=== PATIENT | female | born 1995 | race Caucasian/White ===

== ENCOUNTER 2018-11-08 19:57 | Emergency (ER) | payer BC, OTHER ==
[2018-11-08 23:51] LABS: HBSAB Concentration 0.05 mIU/mL; Hep B Surf AB Non-Reactive (NonReactive); Hep C IgG Ab Non-Reactive (NonReactive); Hep C Index 0.09 S/CO (0-0.79)
[2018-11-09 00:24] LABS: HIV (1/2) Antibody/Antigen Non-Reactive (NonReactive); HIV 1/2 INDEX 0.08 S/CO (<1.00)
== END 2018-11-08 21:18 | disposition home or self-care (01) ==
LOC: ERS 19:57 → EEVIPCON 19:57 → ERS 21:18
DX: S61.232A Puncture wound without foreign body of right middle finger without damage to nail, initial encounter (principal); Z77.21 Contact with and (suspected) exposure to potentially hazardous body fluids; W46.1XXA Contact with contaminated hypodermic needle, initial encounter
CPT/HCPCS: 36415; 86706; 86803; 87389; 99283

== ENCOUNTER 2019-12-02 07:52 | Day surgery (SDC) | payer BC, SELFPAY ==
[2019-12-02] MEDS ORDERED: Ondansetron PF 4 MG/2 ML Vial ONE ×3 (08:09→12:51)
[2019-12-02] MEDS ORDERED: Fentanyl 100 MCG/2 ML VIAL ONE ×4 (08:19→13:14)
[2019-12-02 08:28] LABS: #Basophils 0.1 thou/uL (0.0-0.2); #Eosinphils 0.1 thou/uL (0.0-0.7); #Lymphocytes 1.9 thou/uL (1.20-3.40); #Neutrophils 8.4 thou/uL (1.40-6.50); %Basophils 0.8 % (0.0-1.0); %Eosinophils 0.8 % (0.0-10.0); %Lymphocytes 16.5 % (21.0-51.0); %Monocytes 8.3 % (0.0-10.0); %Neutrophils 73.6 % (42.0-75.0); Hemoglobin 15.9 g/dL (12.0-16.0); Mean Corpuscular HGB CONC 34.7 g/dL (32.0-36.0); Mean Corpuscular Hemoglobin 32.4 pg (27.0-31.0); Mean Corpuscular Volume 93.6 fL (78.0-98.0); Mean Platelet Volume 8.3 fL (7.4-10.4); Platelet Count 252 thou/uL (130-400); Red Blood Cell (RBC) Count 4.89 mill/uL (4.20-5.40); White Blood Cell (WBC) Count 11.4 thou/uL (4.8-10.8)
[2019-12-02 09:04] LABS: BHCG - Serum Negative (NEGATIVE); Pregs Control Background? CLEAR/WHITE (CLR/WHITE); Pregs Control Bar Appear? YES (CONTROL BAR)
[2019-12-02 09:07] LABS: Albumin 4.2 g/dL (3.5-5.0)
[2019-12-02 09:08] LABS: Chloride 104 mmol/L (98-107); Potassium 3.6 mmol/L (3.5-5.1); Sodium 135 mmol/L (136-145)
[2019-12-02 09:09] LABS: Calcium 8.8 mg/dL (7.8-10.44); Globulin 2.8 g/dL (2.4-3.5); Glucose 132 mg/dL (70-105)
[2019-12-02 09:11] LABS: Anion Gap 10 mmol/L (10-20); Bilirubin, Total 0.4 mg/dL (0.2-1.2); Carbon Dioxide 25 mmol/L (22-29)
[2019-12-02 09:12] LABS: Alkaline Phosphatase 58 U/L (40-110)
[2019-12-02 09:13] LABS: BUN (Urea Nitrogen) 7 mg/dL (7.0-18.7); Calc. Creatinine Clearance 0 mL/min (70-130); Estimated GFR-MDRD 90
[2019-12-02 09:14] LABS: AST (SGOT) 49 U/L (5-34)
[2019-12-02 09:15] LABS: ALT (SGPT) 54 U/L (8-55); Lipase 16 U/L (8-78)
[2019-12-02] MEDS ORDERED: Glycopyrrolate 0.2 MG/ML 5 ML SYRINGE ONE (09:24)
[2019-12-02] MEDS ORDERED: Dexamethasone 20 MG/5 ML VIAL ONE (09:24)
[2019-12-02] MEDS ORDERED: PROPOFOL 200 MG/20 ML VIAL ONE (09:24)
[2019-12-02] MEDS ORDERED: Succinylcholine Chloride 20 MG/ML 10 ml SYRINGE FS ONE (09:24)
[2019-12-02] MEDS ORDERED: Lidocaine 1% PF 5 ML VIAL ONE (09:24)
[2019-12-02] MEDS ORDERED: Ketorolac Tromethamine 30 MG/ML VIAL ONE (09:24)
[2019-12-02] MEDS ORDERED: Fentanyl 100 MCG/2 ML VIAL SLOW IVP ONE ×2 (10:10→12:18)
--- NOTE | 2019-12-02 11:03 | CT ---
CT ABDOMEN AND PELVIS WITH IV CONTRAST: Date: 12/02/2019 PROVIDED CLINICAL HISTORY: Right lower quadrant pain. FINDINGS: The visualized lung bases are free of significant opacity. The liver, spleen, pancreas, kidneys, and adrenal glands demonstrate an unremarkable CT appearance. The cecum is on a mobile pedicle, with the cecum located within the left mid abdomen. The cecum measu res approximately 7 cm, containing predominantly gas. The remainder of the colon contains stool. Th ere is a focal area of narrowing of the right colon as it traverses anterior to the right psoas muscl e. The appendix is not distinctly identified, without evidence for appendicitis within the left uppe r quadrant. There is nondistended, fluid-filled bowel present diffusely suggesting enteritis. Multiple prominent by number and borderline enlarged lymph nodes are seen within the central small darrel wel mesentery. There is no inflammatory fat stranding, free fluid, or free air apparent. The regional major vascular structures appear unremarkable. The osseous structures demonstrate no concerning lytic or blastic lesions. IMPRESSION: 1. Fluid-filled nondilated small bowel suggesting enteritis. 2. Enlarged and prominent by number mesenteric lymph nodes suggesting mesenteric adenitis. 3. Nonspecific cecal distention proximal to an area of focal narrowing, with evidence for a mobile c ecum. Consider follow up radiographs to evaluate for contrast passage distal to this area of narrowi ng to exclude early obstructive change. POS: DERICK
[2019-12-02 11:15] LABS: Bilirubin Negative (Negative); Blood, Urine Negative (Negative); Clarity Clear (Clear); Glucose, Urine (Dipstick) Normal (Negative); Ketone, Urine Negative (Negative); Leukocyte Negative Leu/uL (Negative); Nitrite Negative (Negative); Protein, Urine (Dipstick) 10 mg/dL (Neg-Trace); Specific Gravity, Urine Greater than 1.060 (1.002-1.036); Urobilinogen Normal mg/dL (Less than 2); pH, Urine 5.5 (5.0-9.0)
[2019-12-02] MEDS ORDERED: Iopamidol-370 76% 500 ML 1 ML ONE (11:50)
--- NOTE | 2019-12-02 11:53 | ULT ---
US Pelvic Transvag W Doppler History: Right lower quadrant pain. Evaluate for torsion. Comparison: CT same day Findings: Real-time grayscale color and spectral analysis of the pelvis was performed transabdominal and transvaginal approach. No significant free fluid in the pelvis. Distended small bowel loops in the abdomen. Uterus is normal. Endometrium is normal. Adequate vascular flow to both ovaries with multiple follicles. Impression: 1. Normal appearance of the ovaries without torsion. 2. Normal uterus. 3. Mildly distended loops of small bowel in the pelvis. Dr. Brown notified at 11:47 am.
[2019-12-02] MEDS ORDERED: Lidocaine 1% w/Epinephrine 1:100K 20 ML VIAL ONE (12:47)
[2019-12-02] MEDS ORDERED: Bupivacaine 0.25% HCL 30 ML VIAL ONE (12:47)
[2019-12-02] MEDS ORDERED: Zolpidem Tartrate 5 MG TAB PO PRN (14:42)
[2019-12-02] MEDS ORDERED: diphenhydrAMINE 50 MG/ML VIAL IM PRN (14:42)
[2019-12-02] MEDS ORDERED: fentaNYL Citrate/PF 2,000 MCG in Sodium Chloride 0.9% 60 ML IV PRN (14:42)
[2019-12-02] MEDS ORDERED: Promethazine HCl 25 MG/ML VIAL IM PRN ×3 (14:42→15:50)
[2019-12-02] MEDS ORDERED: Naloxone HCl 0.4 mg/ml Vial IV PRN (14:42)
[2019-12-02] MEDS ORDERED: diphenhydrAMINE 25 MG CAP PO PRN (14:42)
[2019-12-02] MEDS ORDERED: Ondansetron PF 4 MG/2 ML Vial IVP PRN ×2 (14:42→15:50)
[2019-12-02] MEDS ORDERED: diphenhydrAMINE 50 MG/ML VIAL IVP PRN (14:42)
[2019-12-02] MEDS ORDERED: Promethazine HCl 25 MG/ML VIAL SLOW IVP PRN (14:43)
[2019-12-02] MEDS ORDERED: Ondansetron HCl/PF 4 MG/2 ML Vial IVP PRN (14:43)
[2019-12-02] MEDS ORDERED: Meperidine HCl/PF 25 MG/ML VIAL ONE (14:43)
[2019-12-02] MEDS ORDERED: Communication Order-Pharmacy FS SCH (14:45)
--- NOTE | 2019-12-02 15:25 | HP ---
CHIEF COMPLAINT: Abdominal pain. HISTORY OF PRESENT ILLNESS: This is a 23-year-old female, who presents with severe acute onset abdominal pain this morning. It is sharp, described as 10/10. She cannot lie down, it hurts so bad. It comes and cramps, associated with nausea, no vomiting. She has had diarrhea for a week. No sick contacts. No fever or chills. No history of chronic anorexia. No history of chronic abdominal pain or chronic diarrhea. She has no known history of inflammatory bowel disease or Crohn's. She denies dysuria, fever, or chills. PAST MEDICAL HISTORY: She denies. PAST SURGICAL HISTORY: Breast augmentation. MEDICATIONS: None. ALLERGIES: MORPHINE CAUSES NAUSEA. SOCIAL HISTORY: No smoking, alcohol, or other drugs. REVIEW OF SYSTEMS: 10-system review of systems is otherwise negative unless described above. PHYSICAL EXAMINATION: HEENT: Sclerae are anicteric. Oropharynx clear. NECK: No lymphadenopathy. CHEST: Clear. HEART: Regular rate. ABDOMEN: Soft, distended, tender in the right lower quadrant with localized guarding. No rebound. EXTREMITIES: No ischemia or edema to extremities. LABORATORY DATA: White blood cell count is mildly elevated. Her hemoglobin is normal. Her creatinine is normal. CT scan shows dilated small intestine, questionable enteritis but also question of internal hernia. ASSESSMENT: Severe abdominal pain in the setting of a possible internal hernia. Differential could also include mesenteric adenitis or infectious or chronically-inflamed enteritis. However, I think she does need diagnostic laparoscopy to rule out ischemia from an internal hernia. Risks, benefits, and alternatives discussed, she gives consent, we will do this today. Job ID: [id number]
[2019-12-02] MEDS ORDERED: Dextrose 5% in Water 1,000 ML IV PRN (15:50)
[2019-12-02] MEDS ORDERED: hydrALAZINE 20 MG/ML VIAL SLOW IVP PRN (15:50)
[2019-12-02] MEDS ORDERED: Dextrose 50% Abboject 50 ML SYRINGE SLOW IVP PRN (15:50)
[2019-12-02] MEDS ORDERED: Ketorolac Tromethamine 30 MG/ML VIAL IVP PRN (15:50)
[2019-12-02 16:54] VITALS: BMI 26.6
[2019-12-02] MEDS: D5 1/2 NS w/20 mEq KCL 1,000 ML IV SCH ×2 (17:56→23:51)
--- NOTE | 2019-12-02 19:58 | OP ---
DATE OF PROCEDURE: 12/02/2019 PREOPERATIVE DIAGNOSIS: Abdominal pain, rule out internal hernia. POSTOPERATIVE DIAGNOSIS: Mesenteric adenitis. PROCEDURE PERFORMED: Diagnostic laparoscopy. ANESTHESIA: General. ESTIMATED BLOOD LOSS: Minimal. COMPLICATIONS: None. FINDINGS: There was mesenteric adenitis in the diffuse small bowel mesentery. There was no evidence of obstruction, ischemia, or internal hernia. There was one area of intussusception in the more proximal small bowel, but this appeared to be transient and spontaneously reduced under direct vision. There was a noninflamed Meckel's. DESCRIPTION OF PROCEDURE: The patient was taken to the operating room and laid supine on the operating table. After general anesthetic was obtained, the abdomen was prepped and draped in a sterile fashion. A Drew catheter had been placed. Curved incision was made below the umbilicus. Cautery was used to dissect down to and score the fascia. Abdominal cavity was entered bluntly using a Eleonora clamp. PDS was used to place as a holding stitch on each side of fascia. A Nani trocar was placed. High-flow pneumoperitoneum was obtained. Suprapubic 5-mm port and left lower quadrant 5-mm port were placed under direct visualization. The cecum was dilated, but there was no ischemia. There was no appendicitis. The appendix was normal. The small bowel was run proximally from the ileocecal valve all the way to the ligament of Treitz. It was dilated throughout much of its course. There was moderate amount of mesenteric adenitis. There were no internal hernias. There was one area of transient intussusception in the more proximal small bowel, but it reduced on its own and there was no evidence of ischemia or mass for small bowel pathology in this area. There were no internal hernias or congenital adhesions in the right abdomen in the area of the cecum. There was a small noninflamed Meckel's without evidence of an adhesion. This was noninflamed. There was no obstruction, ischemia, or twist in this area. Due to the severely dilated small bowel, this was left in place. All port sites were infiltrated using local anesthetic, all ports were removed under camera visualization. Pneumoperitoneum was let down. PDS was used to close the fascia below the umbilicus. All incisions were irrigated and closed with 4-0 Monocryl and Dermabond. The patient was sent to Recovery in stable condition. All instrument counts, needle counts, and lap counts were correct. Job ID: [id number]
[2019-12-02] MEDS: Famotidine 20 MG TAB PO SCH (20:01)
[2019-12-02] MEDS: Famotidine/PF 20 mg/2ml Vial SLOW IVP SCH (20:02)
[2019-12-03] MEDS: D5 1/2 NS w/20 mEq KCL 1,000 ML IV SCH (06:03)
[2019-12-03 07:33] VITALS: TEMP 97.7
[2019-12-03] MEDS ORDERED: HYDROcodone/Acetaminophen 7.5/325 mg Tablet PO PRN (09:20)
[2019-12-03] MEDS: Famotidine 20 MG TAB PO SCH (09:35)
[2019-12-03] MEDS: Famotidine/PF 20 mg/2ml Vial SLOW IVP SCH (09:41)
--- NOTE | 2019-12-03 10:33 | DIS ---
DATE OF ADMISSION: 12/02/2019 DATE OF DISCHARGE: 12/03/2019 ADMIT DIAGNOSIS: Abdominal pain, rule out internal hernia. POSTOPERATIVE DIAGNOSES: Abdominal pain, rule out internal hernia; enteritis. PROCEDURES: Diagnostic laparoscopy negative by Dr. Zambrano without complication. CONDITION ON DISCHARGE: Improved. HOSPITAL COURSE: The patient had severe abdominal pain, necessitating a laparoscopy to rule out ischemic intestine from an internal hernia. There was some question of this on her initial CT, that laparoscopy was negative. On postop day #1, she is doing better. She has incisional type pain, but not the severe pain she had before. She has no nausea. Her diarrhea has resolved. Her incisions are all healing well. She is discharged home. Prescriptions for Harvest and Zofran were sent to her pharmacy. She will return to see me in 2 weeks. Job ID: [id number]
[2019-12-03 11:28] VITALS: BP 106/66
== END 2019-12-03 14:15 | disposition home or self-care (01) ==
LOC: ERS 07:52 → SDC 13:04 → SURG A 16:00 → SDC 12-03 14:15
PROVIDERS: ATTEND Surgery
PROC: 0WJG4ZZ Inspection of Peritoneal Cavity, Percutaneous Endoscopic Approach (ICD-10-PCS; principal; 2019-12-02)
DX: I88.0 Nonspecific mesenteric lymphadenitis (principal); K56.1 Intussusception; K59.8 Other specified functional intestinal disorders; Z88.5 Allergy status to narcotic agent
CPT/HCPCS: 36415; 74177; 76856; 80053; 81003; 83690; 84703; 85025; 96361; 96374; 96375; 96376; J0694; J1100; J1885; J2175; J2405; J2704; J3010; J3480; J3490; Q9967; S0020